=== PATIENT | male | born 1965 | race Caucasian/White ===

== ENCOUNTER 2024-02-05 20:34 | Emergency (ER) | payer BC ==
[2024-02-05] MEDS: diphenhydrAMINE 50 MG/ML SDV IVPUSH ONE (20:34)
[2024-02-05] MEDS: EPINEPHrine 1 MG/ML SDV IM ONE (20:35)
[2024-02-05] MEDS: methylPREDNISolone Sodium Succinate 125 MG/2 ML SDV IVPUSH ONE (20:52)
== END 2024-02-05 21:56 | disposition home or self-care (01) ==
LOC: JP.ED 20:34
DX: T63.441A Toxic effect of venom of bees, accidental (unintentional), initial encounter (principal); Z88.0 Allergy status to penicillin; Z79.890 Hormone replacement therapy; Z79.899 Other long term (current) drug therapy
CPT/HCPCS: 96372; 96374; 96375; 99282; 99283; J0171; J1200; J2919